=== PATIENT | female | born 1960 | race Caucasian/White ===

== ENCOUNTER 2025-08-15 14:20 | Emergency (ER) | payer BC, SELFPAY ==
[2025-08-15 14:23] VITALS: BP 161/88
--- NOTE | 2025-08-15 15:02 | ED.MUSCINJ ---
HPI-Injury
General
Chief Complaint: Musculo-Skeletal Complaint
Source: patient
Exam Limitations: none
Time Seen by Provider: 08/15/25 14:55
Nursing documentation reviewed up to this point in time: agreed with
History of Present Illness-Injury
Initial Injury comments:
65-year-old female states she was at the park about an hour ago, her dogs were running around and they knocked her legs out, she fell injuring her left wrist. She denies hitting her head or any other injury.
Past History
Past History
ED Past Medical History: None
ED Past Surgical History: Other (Sinus surgery)
Social History
Tobacco: Non-smoker
Alcohol: Occasional
Living: with family
Employment: Not employed
Review of Systems
Review of Systems
Allergies reviewed?: Yes
All Other Systems: ROS reviewed and negative except as documented in HPI and ROS
Musculoskeletal Injury Exam
Musculoskeletal Injury Exam
Left Wrist:
Pain with Movement?: Moderate
Tender to palpation?: Moderate
Soft tissue swelling?: Mild
Strain- Sprain- Tear (Connective tissue injury)?: Moderate
Joint instability?: No
Malalignment/deformity?: No
Range of motion: Limited
Distal skin color and temperature: normal-warm & good color
Capillary Refill: normal
Normal distal neurovascular exam?: Yes
Phy Exam
Physical Exam
Physical Exam:
PHYSICAL EXAMINATION:
General: no apparent distress, not acutely ill
Neuro: alert and oriented.
Psychiatric: well kept. interactive and cooperative
Musculoskeletal: Moves with ease
Skin: Warm, pink.
Injury Course
Orders/Labs/Results
Orders:
Orders
08/15/25 14:25
CR Wrist - Left Min 3 Views Urgent
Comment:
Reason For Exam: pain, trauma
08/15/25 15:01
[place] Wrist Left-Treatment ONCE
MDM/Problems Addressed
Differential Diagnosis Includes:
sprain vs fracture
MDM/Problems Addressed:
65-year-old female states she was at the park about an hour ago, her dogs were running around and they knocked her legs out, she fell injuring her left wrist. She denies hitting her head or any other injury.
x-ray of the left wrist initially read by this examiner reveals no acute bony abnormality
[place] wrist splint placed with stated comfort
Referred to orthopedic as needed
*Pulse Oximetry
SaO2: 98
Oxygen Mode of Delivery: Room air
Patient hypoxic: not evaluated
*Critical Care Note
Total Time (30-74mins, 75-104mins- exclusive of procedures): Not Applicable
ED Attending Note
-
Portions of this chart may have been created with voice recognition software.� Occasional wrong word or��sound alike� substitutions may have occurred due to the inherent limitations of voice recognition software.
Discharge Plan
Departure
Patient Disposition: Home (Routine Discharge)
Date of Disposition: 08/15/25
Time of Disposition: 15:06
Patient with high blood pressure during this ER visit?: No
Condition: Good
Discharge Problem:
Sprain of left wrist
Instructions: Using Cold for Pain, Wrist Sprain ED
Referrals:
Demetrio Ruiz MD [Active, Orthopedics] - As needed
Roderick Lagos CRNP [Family Provider, Internal Medicine]
Activity Restrictions/Additional Instructions:
As we discussed, wear the splint as needed for comfort. Tylenol or ibuprofen for pain.
See the orthopedic doctor if your wrist is not a lot better in 1 week or not 100% better in 3 to 4 weeks.
Interventions
Interventions:
*Nursing Disposition Last Done: 08/15/25 15:30
ED-Musculoskeletal Assessment Last Done: 08/15/25 15:30
Discharge Date and Time
Discharge Date/Time: 08/15/25 15:58
Print Language: UKRAINIAN
== END 2025-08-15 15:58 | disposition home or self-care (01) ==
LOC: EMR 14:20
PROVIDERS: EMERGENCY PHYSICIAN Student in an Organized Health Care Education/Training Program; FAMILY PHYSICIAN Registered Nurse
DX: S63.502A Unspecified sprain of left wrist, initial encounter (principal); W18.39XA Other fall on same level, initial encounter; Y92.830 Public park as the place of occurrence of the external cause
CPT/HCPCS: 99283; 29125; 73110

== ENCOUNTER → 2025-09-21 07:44 | Outpatient (REF) | payer BC, SELFPAY | LOC: HWRAD 07:44 | PROVIDERS: ATTENDING PHYSICIAN Orthopaedic Surgery; FAMILY PHYSICIAN Registered Nurse | DX: M25.532 Pain in left wrist (principal) | CPT/HCPCS: 73200 ==